=== PATIENT | female | born 1975 | race Asian ===

== ENCOUNTER 2017-04-19 10:34 | Day surgery (SDC) | payer OTHER ==
[2017-04-17 11:31] VITALS: BMI 20.2
[2017-04-19] MEDS ORDERED: MIDAZOLAM HCL 2 MG/2 ML SINGLE DOSE VIAL ONE (12:41)
[2017-04-19] MEDS ORDERED: LIDOCAINE HCL 2% (20ML MULTI-DOSE VIAL) NR ONE (12:48)
[2017-04-19] MEDS ORDERED: GUM MASTIC/STORAX/MSAL/ALCOHOL 1 DRP DROPSBTL MC ONE (13:39)
[2017-04-19] MEDS ORDERED: LIDOCAINE HCL 2% (50ML VIAL) INF ONE (13:46)
[2017-04-19] MEDS ORDERED: ONDANSETRON 4 MG/2 ML VIAL IVPUSH PRN (14:13)
[2017-04-19] MEDS ORDERED: oxyCODONE HCL 5 MG TABLET PO PRN ×2 (14:13)
[2017-04-19] MEDS ORDERED: LACTATED RINGERS SOLUTION 1,000 ML IV SCH (14:15)
[2017-04-19 16:11] VITALS: TEMP 98.2
[2017-04-19 16:13] VITALS: BP 104/73; PULSE 61
--- NOTE | 2017-04-22 07:40 | OP ---
DATE OF OPERATION: 04/19/2017 PREOPERATIVE DIAGNOSIS: Left carpal tunnel syndrome. POSTOPERATIVE DIAGNOSIS: Left carpal tunnel syndrome. OPERATIVE PROCEDURE: Left endoscopic carpal tunnel release. SURGEON: Horace Estevez MD ANESTHESIA: General. COMPLICATIONS: None. ESTIMATED BLOOD LOSS: Minimal. INDICATIONS FOR PROCEDURE: The patient is a 41-year-old female with the above findings indicated for operative treatment. Risks, benefits, and alternatives were discussed with the patient at length. Proper informed consent was obtained. DESCRIPTION OF PROCEDURE: After proper identification of patient and correct operative site, the patient was brought to the operating room and placed supine on the operative table, prominences well padded. General anesthesia provide by the anesthesiologist adequate for procedure. The left upper extremity was prepped and draped in the usual sterile fashion. A well-padded tourniquet was placed with a sterile prep. Esmarch bandage used to exsanguinate the right upper extremity. Tourniquet was inflated to 250 mmHg. Transverse incision was made at the proximal wrist crease just ulnar to the palmaris longus tendon. Incision was taken sharply through the skin with sharp and blunt dissection through the subcutaneous tissues. Antebrachial fascia was divided, and a full-thickness flap was elevated distally based. The carpal canal was entered with an elevator, and the soft tissue was freed from the undersurface of the transcarpal ligament. Hamate finder dilators were then used to prepare the canal, and the Microaire endoscopic carpal tunnel release system was used and inserted through the state of the transcarpal ligament. The blade was deployed, and the transcarpal ligament was released. At all times, excellent visualization was achieved, and at no time was any soft tissue allowed to interpose between the blade and the undersurface of the transcarpal ligament. Under direct mini open approach, the distal 4 cm of the antebrachial fascia were also divided. The wound was irrigated with saline and repaired with a 4-0 nylon suture. Steri-Strips and sterile dressings were applied. The patient was reversed from anesthesia and brought to the recovery room in stable condition. She tolerated the procedure well. Jatin TORIBIO/[id number]
== END 2017-04-19 15:40 | disposition home or self-care (01) ==
LOC: FASU 10:34
PROVIDERS: ATTEND Orthopaedic Surgery Hand Surgery
PROC: 01N54ZZ Release Median Nerve, Percutaneous Endoscopic Approach (ICD-10-PCS; principal; 2017-04-19 13:04)
DX: G56.02 Carpal tunnel syndrome, left upper limb (principal)
CPT/HCPCS: 84703; 94760

== ENCOUNTER 2017-05-08 19:11 | Emergency (ER) | payer OTHER ==
--- NOTE | 2017-05-08 19:19 | PDOC ---
History of Present Illness - General History Source: Patient Exam Limitations: No Limitations - History of Present Illness Initial Comments: 05/08/17 19:33 The patient is a 41 year old female, with no significant past medical history, who presents to the emergency department sent from urgent care for evaluation of left wrist for possible infection at surgical incision site. Patient reports presenting to urgent care several hours ago with left wrist pain at surgical incision site. She reports associated erythema. Patient was started on IV antibiotics and was suggested she present to the ED for further evaluation. Patient was not prescribed any antibiotics at the urgent care. She denies any associated fever or chills. She denies any recent travel or sick contacts. PAST MEDICAL HISTORY: no significant history PAST SURGICAL HISTORY: no significant history FAMILY HISTORY: no pertinent history SOCIAL HISTORY: Pt lives with family and is employed. MEDICATIONS: reviewed ALLERGIES: As per nursing notes PCP: Dr. Estevez General: No fevers or chills, no weakness, no weight loss HEENT: No change in vision. No sore throat,. No ear pain CardioVascular: No chest pain or shortness of breath Respiratory:No cough, or wheezing. Gastrointestinal: no nausea, vomiting, diarrhea or constipation, No rectal bleeding Genitourinary: No dysuria, hematuria, or frequency Musculoskeletal: Yes: +left wrist pain at surgical incision site. No joint or muscle pain or swelling Neurologic: No headache, vertigo, dizziness or loss of consciousness Psychiatric: No depression Skin: Yes: +left wrist erythema. No other rashes or easy bruising Endocrine: no increased thirst or abnormal weight change Allergic: no skin or latex allergy All other systems reviewed and normal GENERAL: The patient is awake, alert, and fully oriented, in no acute distress. HEAD: Normal with no signs of trauma. EYES: Pupils equal, round and reactive to light, extraocular movements intact, sclera anicteric, conjunctiva clear. EXTREMITIES: Normal range of motion, no edema. NEUROLOGICAL: Alert and oriented x3, nonfocal exam, grossly intact, Normal speech, normal gait. PSYCH: Normal mood, normal affect. SKIN: Left wrist surgical scar healing well. There is no dehiscence or discharge at wound site. Mild erythema to wound margins, with erythema extending approximately 3-4 cm up the left arm. There is no ascending lymphangitis. No palpable masses or cords. Otherwise warm, dry, normal turgor, no other rashes or lesions noted. <Briones,Giomilsy - Last Filed: 05/08/17 19:33> - General History Source: Patient Exam Limitations: No Limitations - History of Present Illness Initial Comments: 05/08/17 19:44 A portion of this note was documented by scribe services under my direction. I have reviewed the details of the note, within reason, and agree with the documentation. The case summary and management plan written by me. Assessment and plan: This is a 41-year-old female who comes in for evaluation. Patient was at an urgent care center earlier in the day. Patient is postop for carpal tunnel surgery last week. Patient was concerned that she may have an infection. Patient has no other symptoms other than some increased redness and swelling in the area of the surgery. Patient denied any opening up of the surgical site. Patient was given a dose of Unasyn at the urgent care center and told to come to the ER. The margins of erythema were drawn by the urgent care doctor and the amount of erythema had significantly decreased in the 2 hours from the time the patient got the Unasyn at the urgent care center until she was evaluated by me. Patient however was not covered for MRSA so I gave her Bactrim DS and told her she needs to follow-up with her hand surgeon in the morning. <Lana Iverson I - Last Filed: 05/08/17 19:45> - General Chief Complaint: Pain, Acute Stated Complaint: SENT FROM URGENT CARE FOR POSSIBLE INFECTION TO [facility] Time Seen by Provider: 05/08/17 19:14 Past History <Jude Briones - Last Filed: 05/08/17 19:33> - Past Medical History Anemia: No Asthma: No Cancer: No Cardiac Disorders: No CVA: No COPD: No CHF: No Dementia: No Diabetes: No GI Disorders: No Disorders: No HTN: No Hypercholesterolemia: No Liver Disease: No Seizures: No Thyroid Disease: No - Surgical History Abdominal Surgery: No Appendectomy: No Cardiac Surgery: No Cholecystectomy: No Lung Surgery: No Neurologic Surgery: No Orthopedic Surgery: Yes (ACL LEFT KNEE 2003) - Psycho/Social/Smoking Cessation Hx Smoking History: Never smoked Have you smoked in the past 12 months: No Hx Alcohol Use: Yes (RARE) Drug/Substance Use Hx: No Substance Use Type: Alcohol Hx Substance Use Treatment: No <Lana Iverson I - Last Filed: 05/08/17 19:45> - Past Medical History Allergies/Adverse Reactions: Allergies Allergy/AdvReac Type Severity Reaction Status Date / Time shellfish derived AdvReac Severe Hives Verified 05/08/17 19:12 Home Medications: Ambulatory Orders Sulfamethoxazole/Trimethoprim [Bactrim DS -] 1 tab PO BID #14 tablet 05/08/17 *Physical Exam - Vital Signs Last Vital Signs Temp Pulse Resp BP Pulse Ox 98 F 73 16 124/89 100 05/08/17 19:15 05/08/17 19:15 05/08/17 19:15 05/08/17 19:15 05/08/17 19:15 <Jude Briones - Last Filed: 05/08/17 19:33> *DC/Admit/Observation/Transfer - Attestations Scribe Attestion: 05/08/17 19:34 Documentation prepared by Jude Briones, acting as medical physics professor for Lana Iverson MD. <Jude Briones - Last Filed: 05/08/17 19:33> - Discharge Dispostion Admit: No <Lana Iverson I - Last Filed: 05/08/17 19:45> Diagnosis at time of Disposition: Postoperative infection Qualifiers: Encounter type: initial encounter Qualified Code(s): T81.4XXA - Infection following a procedure, initial encounter - Discharge Dispostion Disposition: HOME Condition at time of disposition: Stable - Prescriptions Prescriptions: Sulfamethoxazole/Trimethoprim [Bactrim DS -] 1 tab PO BID #14 tablet - Referrals Referrals: Horace Estevez MD [Primary Care Provider] - - Patient Instructions Additional Instructions: Tylenol or Motrin as needed for pain. It is very important that you call Dr. Estevez in the morning if he is not able to see you in his office in one of his partners will be able to see you and evaluate you. Get the prescription filled that I sent to the pharmacy and take it as directed. Return to the emergency department immediately with ANY new, persistent or worsening symptoms. Continue any medications as previously prescribed by your physician. You should follow up with your primary doctor as soon as possible regarding today's emergency department visit. . Please make sure your doctor reviews the results of your emergency evaluation. Thank you for coming to the Emergency Department today for your care. It was a pleasure to see you today. Please note that your evaluation is INCOMPLETE until you follow-up with your doctor.
[2017-05-08 19:21] VITALS: BP 124/89; PULSE 73; TEMP 98; BMI 20.7
[2017-05-08] MEDS ORDERED: SULFAMETHOXAZOLE/TRIMETHOPRIM 800MG/160MG D.S. TABLET PO ONE (19:24)
[2017-05-08] MEDS ORDERED: SULFAMETHOXAZOLE/TRIMETHOPRIM 800MG/160MG D.S. TABLET ONE (19:32)
== END 2017-05-08 19:36 | disposition home or self-care (01) ==
LOC: FER 19:11
DX: T81.4XXA Infection following a procedure, initial encounter (principal); X58.XXXA Exposure to other specified factors, initial encounter; Y93.9 Activity, unspecified; Y92.9 Unspecified place or not applicable
CPT/HCPCS: 99281-25